=== PATIENT | female | born 1950 ===

== ENCOUNTER 2019-09-26 12:03 | Outpatient (CLI) | payer OTHER | END 2019-09-26 12:10 | disposition home or self-care (01) | LOC: LAB 12:03 | DX: C54.1 Malignant neoplasm of endometrium (principal) ==

== ENCOUNTER 2019-09-28 10:20 | Outpatient (CLI) | payer OTHER | END 2019-09-28 11:09 | disposition home or self-care (01) | LOC: MRI 10:20 | DX: C54.1 Malignant neoplasm of endometrium (principal) | CPT/HCPCS: 72197; A9575; 72196 ==